=== PATIENT | female | born 1980 | race American Indian/Alaskan Native ===

== ENCOUNTER 2018-10-24 17:20 | Emergency (ER) | payer MEDICAID ==
[~2018-10-24] VITALS: Ht 160 cm; Wt 73.6 kg
[~2018-10-24 17:20] MED LIST: HYDR-4353 PO; MULT1TAB74 PO; ONDA4TAB6 PO
[2018-10-24 17:57] LABS: BASOPHILS # (AUTO) 0.1 X10'3 (0-0.2); BASOPHILS % (AUTO) 0.6 % (0-1); EOSINOPHILS % (AUTO) 0.6 % (0-6); HEMATOCRIT 27.5 % (35.0-45.0); HEMOGLOBIN 8.3 g/dl (12.0-16.0); LYMPHOCYTES # (AUTO) 2.6 X10'3 (1.1-4.8); MEAN CORPUSCULAR HEMOGLOBIN 19.8 PG (27.0-31.0); MEAN CORPUSCULAR HGB CONC 30.3 g/dL (33.0-36.5); MEAN CORPUSCULAR VOLUME 65.5 FL (78-98); MEAN PLATELET VOLUME 8.2 FL (7.4-10.4); MONOCYTES # (AUTO) 0.7 X10'3 (0-0.9); MONOCYTES % (AUTO) 8.6 % (2-12); NEUTROPHILS # (AUTO) 4.9 X10'3 (1.8-7.7); NEUTROPHILS % (AUTO) 59.2 % (42-75); PLATELET COUNT 441 X10'3 (140-440); RED CELL DISTRIBUTION WIDTH 18.5 % (11.5-14.5); WHITE BLOOD COUNT 8.2 X10'3 (4.5-11.0)
[2018-10-24 18:07] LABS: URINE HCG NEGATIVE (NEG)
[2018-10-24 18:13] LABS: CLARITY,URINE CLOUDY (Clear); COLOR,URINE YELLOW (Yellow); GLUCOSE, URINE NEGATIVE (Neg); KETONES,URINE NEGATIVE (Neg); LEUKOCYTE ESTERASE ,URINE NEGATIVE (Neg); NITRITES, URINE NEGATIVE (Neg); OCCULT BLOOD,URINE TRACE-INTACT (Neg); PH,URINE 5.5 (4.8-8.0); PROTEIN,URINE NEGATIVE (Neg)
[2018-10-24 18:14] LABS: ALANINE AMINOTRANSFERASE 30 U/L (12-78); ALBUMIN 3.5 G/DL (3.4-5.0); ALBUMIN/GLOBULIN RATIO 1.1 (1.1-1.5); ALKALINE PHOSPHATASE 109 IU/L (46-116); ANION GAP 7 (8-16); ASPARTATE AMINO TRANSFERASE 28 U/L (10-37); BILIRUBIN,TOTAL 0.2 MG/DL (0.1-1.0); BLOOD UREA NITROGEN 10 MG/DL (7-18); BUN/CREATININE RATIO 14.9 (6.6-38.0); CALCIUM 8.3 MG/DL (8.5-10.1); CHLORIDE 105 MMOL/L (99-107); CREATININE 0.67 MG/DL (0.40-0.90); GLUCOSE 78 MG/DL (70-104); LIPASE 70 U/L (73-393); POTASSIUM 3.7 MMOL/L (3.5-5.1); SODIUM 138 MMOL/L (135-145); TOTAL CARBON DIOXIDE 26.4 MMOL/L (24-32); TOTAL PROTEIN 6.6 G/DL (6.4-8.2); eGFR > 90 ML/MIN
[2018-10-24] MEDS ORDERED: ondansetron/PF 4mg/2ml inj IV ONE (18:15)
[2018-10-24] MEDS ORDERED: normal saline 1000ML IV soln IVB ONE (18:15)
[2018-10-24] MEDS ORDERED: sucralfate 1gm/10ml UD suspension PO STA (18:20)
[2018-10-24] MEDS: morphine 4 MG/ML inj SYRINge IV PRN ×2 (18:24→18:48)
[2018-10-24 18:25] LABS: UA COLLECTION TYPE CLN CATCH MIDSTREAM
[2018-10-24 18:29] LABS: BACTERIA,URINE NONE SEEN /HPF (Neg); CAL OXALATE CRYSTALS 2+ /HPF (NEGATIVE); MUCUS STRANDS NONE SEEN /LPF (Neg); RBC,URINE 0-2 /HPF (0-2); SQUAMOUS EPITHELIAL CELL,UR NONE SEEN /LPF (FEW); STARCH,URINE FEW /HPF (NEGATIVE); WBC,URINE NONE SEEN /HPF (0-4)
--- NOTE | 2018-10-24 18:45 | NUR ---
Pt pain decreased from 9/10 to 7/10 after 1st dose of Morphine. Additional dose of Morphine to be given.
[2018-10-24] MEDS ORDERED: SUCR1TAB34 PO (18:52)
--- NOTE | 2018-10-24 19:21 | NUR ---
pt given 8 oz of water for PO challenge. Pt denied nausea and no increase in pain.
[2018-10-24 19:22] VITALS: BP 120/73
[2018-10-24 20:35] LABS: PLATELET ESTIMATE INCREASED
[2018-10-24 20:36] LABS: ANISOCYTOSIS 2+; HYPOCHROMASIA 1+; MICROCYTOSIS 2+; SCHISTOCYTES FEW
== END 2018-10-24 19:25 | disposition home or self-care (01) ==
LOC: ER 17:21
DX: R10.9 Unspecified abdominal pain (principal); R11.2 Nausea with vomiting, unspecified; K21.9 Gastro-esophageal reflux disease without esophagitis; G89.29 Other chronic pain; Z88.0 Allergy status to penicillin; Z88.8 Allergy status to other drugs, medicaments and biological substances; Z88.2 Allergy status to sulfonamides; Z79.899 Other long term (current) drug therapy; Z87.442 Personal history of urinary calculi; Z90.710 Acquired absence of both cervix and uterus; Z98.890 Other specified postprocedural states; Z98.84 Bariatric surgery status; Z90.89 Acquired absence of other organs; Z87.01 Personal history of pneumonia (recurrent); Z86.2 Personal history of diseases of the blood and blood-forming organs and certain disorders involving the immune mechanism
CPT/HCPCS: 36415; 80053; 81001; 81025; 83690; 85025; 85610; 96374; 96375; 99283; J2270; J2405; J7030

== ENCOUNTER 2019-02-05 09:21 | Emergency (ER) | payer MEDICAID, OTHER ==
[~2019-02-05] VITALS: Ht 162.6 cm; Wt 67.6 kg
[~2019-02-05 09:21] MED LIST changes: +SUCR1TAB34 PO
[2019-02-05] MEDS ORDERED: normal saline 1000ML IV soln IVB ONE (09:45)
[2019-02-05] MEDS ORDERED: ondansetron/PF 4mg/2ml inj IV ONE (09:45)
--- NOTE | 2019-02-05 09:50 | NUR ---
PROVIDER EUGENE ANDERSON PT AND PT IS NOW A TRAUMA LEVEL 2.
--- NOTE | 2019-02-05 10:07 | NUR ---
PT TAKEN OUT TO CT VIA W/C BY TECH.
[2019-02-05 10:22] LABS: BASOPHILS % (AUTO) 0.6 % (0-1); EOSINOPHILS % (AUTO) 0.3 % (0-6); HEMATOCRIT 29.6 % (35.0-45.0); HEMOGLOBIN 9.5 g/dl (12.0-16.0); LYMPHOCYTES # (AUTO) 1.9 X10'3 (1.1-4.8); LYMPHOCYTES % (AUTO) 29.6 % (21-51); MEAN CORPUSCULAR HEMOGLOBIN 22.5 PG (27.0-31.0); MEAN CORPUSCULAR HGB CONC 32.2 g/dL (33.0-36.5); MEAN CORPUSCULAR VOLUME 69.8 FL (78-98); MONOCYTES # (AUTO) 0.6 X10'3 (0-0.9); MONOCYTES % (AUTO) 8.7 % (2-12); NEUTROPHILS # (AUTO) 3.9 X10'3 (1.8-7.7); NEUTROPHILS % (AUTO) 60.8 % (42-75); PLATELET COUNT 321 X10'3 (140-440); RED BLOOD COUNT 4.23 X10'6 (4.20-5.60); RED CELL DISTRIBUTION WIDTH 20.7 % (11.5-14.5); WHITE BLOOD COUNT 6.4 X10'3 (4.5-11.0)
--- NOTE | 2019-02-05 10:29 | NUR ---
PT BACK FROM CT VIA W/C BY TECH. VS STABLE
[2019-02-05] MEDS ORDERED: NO HOME MEDS (10:41)
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
[2019-02-05 10:42] LABS: ALANINE AMINOTRANSFERASE 56 U/L (12-78); ALBUMIN 3.6 G/DL (3.4-5.0); ALBUMIN/GLOBULIN RATIO 1.1 (1.1-1.5); ALKALINE PHOSPHATASE 198 IU/L (46-116); ANION GAP 9 (8-16); ASPARTATE AMINO TRANSFERASE 57 U/L (10-37); BILIRUBIN,TOTAL 0.2 MG/DL (0.1-1.0); BLOOD UREA NITROGEN 8 MG/DL (7-18); BUN/CREATININE RATIO 11.9 (6.6-38.0); CALCIUM 8.2 MG/DL (8.5-10.1); CHLORIDE 105 MMOL/L (99-107); CREATININE 0.67 MG/DL (0.40-0.90); GLUCOSE 82 MG/DL (70-104); POTASSIUM 3.1 MMOL/L (3.5-5.1); SODIUM 140 MMOL/L (135-145); eGFR > 90 ML/MIN
[2019-02-05] MEDS ORDERED: HYDROcodone/acetaminophen 5mg/325mg tablet PO ONE (10:45)
--- NOTE | 2019-02-05 10:53 | NUR ---
Trauma status cleared.
[2019-02-05] MEDS ORDERED: CYCL-1 PO (10:56)
[2019-02-05] MEDS ORDERED: ONDA4TAB6 PO (10:56)
[2019-02-05 11:09] VITALS: BP 134/78
--- NOTE | 2019-02-05 11:28 | NUR ---
mahamed nino [phone] obtained case # [id number]
[2019-02-05 11:52] LABS: ANISOCYTOSIS 3+; MICROCYTOSIS 2+; PLATELET ESTIMATE NORMAL
[2019-02-05 11:53] LABS: ELLIPTOCYTES 1+; SCHISTOCYTES FEW
== END 2019-02-05 11:36 | disposition home or self-care (01) ==
LOC: ER 09:21
DX: S06.0X0A Concussion without loss of consciousness, initial encounter (principal); S16.1XXA Strain of muscle, fascia and tendon at neck level, initial encounter; S00.83XA Contusion of other part of head, initial encounter; D64.9 Anemia, unspecified; K21.9 Gastro-esophageal reflux disease without esophagitis; G47.30 Sleep apnea, unspecified; G89.29 Other chronic pain; F10.99 Alcohol use, unspecified with unspecified alcohol-induced disorder; H53.8 Other visual disturbances; Z87.442 Personal history of urinary calculi; Z90.49 Acquired absence of other specified parts of digestive tract; Z98.890 Other specified postprocedural states; Z98.84 Bariatric surgery status; Z90.89 Acquired absence of other organs; Z88.0 Allergy status to penicillin; Z88.2 Allergy status to sulfonamides; Z88.8 Allergy status to other drugs, medicaments and biological substances; Z79.899 Other long term (current) drug therapy; Y08.89XA Assault by other specified means, initial encounter; Y93.89 Activity, other specified; Y92.89 Other specified places as the place of occurrence of the external cause; Y99.8 Other external cause status; Y90.9 Presence of alcohol in blood, level not specified
CPT/HCPCS: 36415; 70450; 70486; 71045; 72125; 80053; 85025; 85610; 93005; 96374; 99284; J2405; J7030

== ENCOUNTER 2019-03-08 20:46 | Emergency (ER) | payer OTHER ==
[~2019-03-08] VITALS: Ht 162.6 cm; Wt 70.3 kg
[~2019-03-08 20:46] MED LIST changes: +CYCL-1 PO; -HYDR-4353 PO; -MULT1TAB74 PO; +NO HOME MEDS; -SUCR1TAB34 PO
[2019-03-08 21:06] VITALS: BP 139/79
[2019-03-08] MEDS ORDERED: normal saline 1000ML IV soln IVB ONE (22:15)
[2019-03-08] MEDS ORDERED: ondansetron/PF 4mg/2ml inj IV ONE (22:15)
[2019-03-08] MEDS ORDERED: ONDA4TAB6 PO (23:35)
[2019-03-08] MEDS ORDERED: CLIN150C2 PO (23:35)
[2019-03-08 23:42] LABS: ALANINE AMINOTRANSFERASE 29 U/L (12-78); ALBUMIN 3.2 G/DL (3.4-5.0); ALBUMIN/GLOBULIN RATIO 1.2 (1.1-1.5); ALKALINE PHOSPHATASE 113 IU/L (46-116); ANION GAP 4 (8-16); ASPARTATE AMINO TRANSFERASE 27 U/L (10-37); BILIRUBIN,TOTAL 0.2 MG/DL (0.1-1.0); BLOOD UREA NITROGEN 6 MG/DL (7-18); BUN/CREATININE RATIO 8.5 (6.6-38.0); CALCIUM 7.5 MG/DL (8.5-10.1); CHLORIDE 108 MMOL/L (99-107); CREATININE 0.71 MG/DL (0.40-0.90); GLUCOSE 81 MG/DL (70-104); LIPASE 54 U/L (73-393); POTASSIUM 3.9 MMOL/L (3.5-5.1); SODIUM 140 MMOL/L (135-145); TOTAL CARBON DIOXIDE 27.8 MMOL/L (24-32); TOTAL PROTEIN 5.8 G/DL (6.4-8.2); eGFR > 90 ML/MIN
== END 2019-03-09 01:07 | disposition home or self-care (01) ==
LOC: ER 20:47
DX: L03.011 Cellulitis of right finger (principal); K29.00 Acute gastritis without bleeding; G47.30 Sleep apnea, unspecified; K21.9 Gastro-esophageal reflux disease without esophagitis; G89.29 Other chronic pain; Z90.49 Acquired absence of other specified parts of digestive tract; Z98.0 Intestinal bypass and anastomosis status; Z98.890 Other specified postprocedural states; Z88.0 Allergy status to penicillin; Z88.2 Allergy status to sulfonamides; Z88.1 Allergy status to other antibiotic agents; Z88.8 Allergy status to other drugs, medicaments and biological substances; Z79.899 Other long term (current) drug therapy
CPT/HCPCS: 36415; 80053; 83690; 96361; 96374; 99283; J2405; J7030

== ENCOUNTER 2019-07-27 05:07 | Emergency (ER) | payer OTHER ==
[~2019-07-27] VITALS: Ht 162.6 cm; Wt 65.5 kg
[2019-07-27 05:09] VITALS: BP 124/99
== END 2019-07-27 06:53 | disposition home or self-care (01) ==
LOC: ER 05:08
DX: L23.7 Allergic contact dermatitis due to plants, except food (principal); N92.0 Excessive and frequent menstruation with regular cycle; E16.2 Hypoglycemia, unspecified; G47.30 Sleep apnea, unspecified; K21.9 Gastro-esophageal reflux disease without esophagitis; G89.29 Other chronic pain; Z90.710 Acquired absence of both cervix and uterus; Z98.0 Intestinal bypass and anastomosis status; Z98.890 Other specified postprocedural states; Z88.0 Allergy status to penicillin; Z88.8 Allergy status to other drugs, medicaments and biological substances; Z79.899 Other long term (current) drug therapy
CPT/HCPCS: 99282

== ENCOUNTER 2019-08-09 22:02 | Emergency (ER) | payer OTHER ==
[~2019-08-09] VITALS: Ht 162.6 cm; Wt 62.7 kg
[2019-08-09] MEDS ORDERED: normal saline 1000ML IV soln IVB ONE ×2 (22:25→22:55)
[2019-08-09 22:29] LABS: CLARITY,URINE CLEAR (Clear); COLOR,URINE YELLOW (Yellow); GLUCOSE, URINE NEGATIVE (Neg); KETONES,URINE NEGATIVE (Neg); LEUKOCYTE ESTERASE ,URINE NEGATIVE (Neg); NITRITES, URINE NEGATIVE (Neg); OCCULT BLOOD,URINE NEGATIVE (Neg); PH,URINE 5.5 (4.8-8.0); PROTEIN,URINE NEGATIVE (Neg); UROBILINOGEN,URINE 0.2 E.U/dL (0.2-1.0)
[2019-08-09 22:31] LABS: URINE HCG NEGATIVE (NEG)
[2019-08-09 22:36] LABS: UA COLLECTION TYPE CLN CATCH MIDSTREAM
[2019-08-09 22:38] LABS: BASOPHILS % (AUTO) 0.5 % (0-1); EOSINOPHILS % (AUTO) 0.4 % (0-6); HEMOGLOBIN 11.7 g/dl (12.0-16.0); LYMPHOCYTES # (AUTO) 2.3 X10'3 (1.1-4.8); LYMPHOCYTES % (AUTO) 27.4 % (21-51); MEAN CORPUSCULAR HEMOGLOBIN 26.7 PG (27.0-31.0); MEAN CORPUSCULAR HGB CONC 32.4 g/dL (33.0-36.5); MEAN CORPUSCULAR VOLUME 82.5 FL (78-98); MEAN PLATELET VOLUME 7.9 FL (7.4-10.4); MONOCYTES # (AUTO) 0.6 X10'3 (0-0.9); MONOCYTES % (AUTO) 6.9 % (2-12); NEUTROPHILS # (AUTO) 5.5 X10'3 (1.8-7.7); NEUTROPHILS % (AUTO) 64.8 % (42-75); PLATELET COUNT 351 X10'3 (140-440); RED BLOOD COUNT 4.36 X10'6 (4.20-5.60); RED CELL DISTRIBUTION WIDTH 14.9 % (11.5-14.5); WHITE BLOOD COUNT 8.5 X10'3 (4.5-11.0)
[2019-08-09 22:48] LABS: ALANINE AMINOTRANSFERASE 28 U/L (12-78); ALBUMIN 3.4 G/DL (3.4-5.0); ALBUMIN/GLOBULIN RATIO 1.2 (1.1-1.5); ANION GAP 2 (8-16); ASPARTATE AMINO TRANSFERASE 21 U/L (10-37); BILIRUBIN,TOTAL 0.2 MG/DL (0.1-1.0); BLOOD UREA NITROGEN 9 MG/DL (7-18); BUN/CREATININE RATIO 10.8 (6.6-38.0); CALCIUM 8.7 MG/DL (8.5-10.1); CHLORIDE 105 MMOL/L (99-107); CREATININE 0.83 MG/DL (0.40-0.90); GLUCOSE 72 MG/DL (70-104); POTASSIUM 4.1 MMOL/L (3.5-5.1); SODIUM 138 MMOL/L (135-145); TOTAL CARBON DIOXIDE 30.9 MMOL/L (24-32); TOTAL PROTEIN 6.2 G/DL (6.4-8.2); eGFR 76 ML/MIN
[2019-08-09 22:49] LABS: ALKALINE PHOSPHATASE 121 IU/L (46-116); LIPASE 84 U/L (73-393)
[2019-08-09] MEDS ORDERED: magnesium citrate 296ml oral solution PO ONE (23:10)
[2019-08-09 23:29] VITALS: BP 134/87
== END 2019-08-10 00:12 | disposition home or self-care (01) ==
LOC: ER 22:03
DX: R10.31 Right lower quadrant pain (principal); R11.2 Nausea with vomiting, unspecified; R10.32 Left lower quadrant pain; R50.9 Fever, unspecified; K59.00 Constipation, unspecified; K21.9 Gastro-esophageal reflux disease without esophagitis; G89.29 Other chronic pain; Z87.01 Personal history of pneumonia (recurrent); Z86.2 Personal history of diseases of the blood and blood-forming organs and certain disorders involving the immune mechanism; Z87.442 Personal history of urinary calculi; Z90.49 Acquired absence of other specified parts of digestive tract; Z98.890 Other specified postprocedural states; Z90.89 Acquired absence of other organs; Z88.0 Allergy status to penicillin; Z88.8 Allergy status to other drugs, medicaments and biological substances; Z79.899 Other long term (current) drug therapy
CPT/HCPCS: 36415; 74176; 80053; 81003; 81025; 83690; 85025; 96360; 96361; 99284; J7030

== ENCOUNTER 2019-10-11 21:26 | Emergency (ER) | payer MEDICAID ==
[~2019-10-11] VITALS: Ht 162.6 cm; Wt 65.0 kg
[2019-10-11 21:47] LABS: URINE HCG NEGATIVE (NEG)
[2019-10-11] MEDS ORDERED: normal saline 1000ml 1,000 ML IV ONE (21:50)
[2019-10-11] MEDS ORDERED: ondansetron/PF 4mg/2ml inj IV ONE (21:55)
[2019-10-11 22:10] LABS: ALANINE AMINOTRANSFERASE 61 U/L (12-78); ALBUMIN 3.2 G/DL (3.4-5.0); ALBUMIN/GLOBULIN RATIO 1.1 (1.1-1.5); ALKALINE PHOSPHATASE 167 IU/L (46-116); ANION GAP 7 (8-16); ASPARTATE AMINO TRANSFERASE 92 U/L (10-37); BILIRUBIN,TOTAL 0.2 MG/DL (0.1-1.0); BLOOD UREA NITROGEN 8 MG/DL (7-18); CALCIUM 7.7 MG/DL (8.5-10.1); CHLORIDE 107 MMOL/L (99-107); GLUCOSE 127 MG/DL (70-104); LIPASE 125 U/L (73-393); POTASSIUM 3.6 MMOL/L (3.5-5.1); SODIUM 139 MMOL/L (135-145); TOTAL CARBON DIOXIDE 24.9 MMOL/L (24-32); eGFR 79 ML/MIN
[2019-10-11 22:46] LABS: BASOPHILS % (AUTO) 0.6 % (0-1); EOSINOPHILS % (AUTO) 0.5 % (0-6); HEMATOCRIT 34.4 % (35.0-45.0); HEMOGLOBIN 11.1 g/dl (12.0-16.0); LYMPHOCYTES # (AUTO) 1.8 X10'3 (1.1-4.8); MEAN CORPUSCULAR HEMOGLOBIN 25.6 PG (27.0-31.0); MEAN CORPUSCULAR HGB CONC 32.2 g/dL (33.0-36.5); MEAN CORPUSCULAR VOLUME 79.3 FL (78-98); MEAN PLATELET VOLUME 8.8 FL (7.4-10.4); MONOCYTES # (AUTO) 0.6 X10'3 (0-0.9); MONOCYTES % (AUTO) 8.5 % (2-12); NEUTROPHILS # (AUTO) 4.1 X10'3 (1.8-7.7); NEUTROPHILS % (AUTO) 62.4 % (42-75); PLATELET COUNT 317 X10'3 (140-440); RED BLOOD COUNT 4.34 X10'6 (4.20-5.60); RED CELL DISTRIBUTION WIDTH 14.3 % (11.5-14.5); WHITE BLOOD COUNT 6.6 X10'3 (4.5-11.0)
[2019-10-11 22:57] LABS: CLARITY,URINE SLIGHTLY CLOUDY (Clear); COLOR,URINE YELLOW (Yellow); GLUCOSE, URINE NEGATIVE (Neg); KETONES,URINE NEGATIVE (Neg); LEUKOCYTE ESTERASE ,URINE NEGATIVE (Neg); NITRITES, URINE NEGATIVE (Neg); OCCULT BLOOD,URINE NEGATIVE (Neg); PROTEIN,URINE NEGATIVE (Neg); UROBILINOGEN,URINE 0.2 E.U/dL (0.2-1.0)
[2019-10-11 23:01] LABS: UA COLLECTION TYPE CLN CATCH MIDSTREAM
[2019-10-11 23:10] LABS: BACTERIA,URINE FEW /HPF (Neg); MUCUS STRANDS FEW /LPF (Neg); RBC,URINE NONE SEEN /HPF (0-2); SQUAMOUS EPITHELIAL CELL,UR MANY /LPF (FEW); WBC,URINE 0-4 /HPF (0-4)
--- NOTE | 2019-10-11 23:20 | NUR ---
relieving RN for break, pt is resting quietly on gurney
[2019-10-11] MEDS ORDERED: famotidine/PF 10 mg/ml inj IV ONE (23:45)
[2019-10-11] MEDS ORDERED: FAMO40TA73 PO (23:48)
[2019-10-12 00:05] VITALS: BP 119/76
== END 2019-10-12 00:09 | disposition home or self-care (01) ==
LOC: ER 21:26
DX: R10.84 Generalized abdominal pain (principal); R11.2 Nausea with vomiting, unspecified; G47.30 Sleep apnea, unspecified; K21.9 Gastro-esophageal reflux disease without esophagitis; G89.29 Other chronic pain; Z90.49 Acquired absence of other specified parts of digestive tract; Z95.1 Presence of aortocoronary bypass graft; Z98.890 Other specified postprocedural states; Z90.89 Acquired absence of other organs; Z88.0 Allergy status to penicillin; Z88.8 Allergy status to other drugs, medicaments and biological substances; Z79.899 Other long term (current) drug therapy
CPT/HCPCS: 36415; 80053; 81001; 81025; 83690; 85025; 96361; 96374; 96375; 99284; J2405; J3490; J7030

== ENCOUNTER 2019-12-18 20:35 | Emergency (ER) | payer MEDICAID ==
[~2019-12-18] VITALS: Ht 162.6 cm; Wt 66.4 kg
[~2019-12-18 20:35] MED LIST changes: +FAMO40TA73 PO
[2019-12-18 20:37] VITALS: BP 126/72
== END 2019-12-18 21:44 | disposition left against medical advice (07) ==
LOC: ER 20:36
DX: O26.91 Pregnancy related conditions, unspecified, first trimester (principal); Z3A.08 8 weeks gestation of pregnancy; Z53.21 Procedure and treatment not carried out due to patient leaving prior to being seen by health care provider

== ENCOUNTER 2020-03-18 10:58 | Outpatient (CLI) | payer MEDICAID ==
[2020-03-18 11:46] LABS: BASOPHILS % (AUTO) 0.4 % (0-1); EOSINOPHILS % (AUTO) 0.1 % (0-6); HEMATOCRIT 32.3 % (35.0-45.0); HEMOGLOBIN 10.4 g/dl (12.0-16.0); LYMPHOCYTES # (AUTO) 1.8 X10'3 (1.1-4.8); LYMPHOCYTES % (AUTO) 17.7 % (21-51); MEAN CORPUSCULAR HEMOGLOBIN 23.4 PG (27.0-31.0); MEAN CORPUSCULAR HGB CONC 32.1 g/dL (33.0-36.5); MEAN CORPUSCULAR VOLUME 72.8 FL (78-98); MEAN PLATELET VOLUME 7.8 FL (7.4-10.4); MONOCYTES # (AUTO) 0.7 X10'3 (0-0.9); MONOCYTES % (AUTO) 6.9 % (2-12); NEUTROPHILS # (AUTO) 7.5 X10'3 (1.8-7.7); NEUTROPHILS % (AUTO) 74.9 % (42-75); PLATELET COUNT 381 X10'3 (140-440); RED BLOOD COUNT 4.44 X10'6 (4.20-5.60); RED CELL DISTRIBUTION WIDTH 20.6 % (11.5-14.5); WHITE BLOOD COUNT 10.1 X10'3 (4.5-11.0)
[2020-03-18 17:57] LABS: ELLIPTOCYTES 1+; PLATELET ESTIMATE NORMAL; POLYCHROMASIA 1+
[2020-03-18 17:58] LABS: ANISOCYTOSIS 3+; HYPOCHROMASIA 1+; MICROCYTOSIS 1+
== END 2020-03-18 23:59 | disposition home or self-care (01) ==
LOC: LAB 10:58
DX: D64.9 Anemia, unspecified (principal); Z3A.20 20 weeks gestation of pregnancy
CPT/HCPCS: 36415; 85008; 85025

== ENCOUNTER 2020-03-24 23:29 | Emergency (ER) | payer MEDICAID ==
[~2020-03-24] VITALS: Ht 162.6 cm; Wt 67.2 kg
[2020-03-25 00:16] LABS: HEMATOCRIT 34.2 % (35.0-45.0); WHITE BLOOD COUNT 7.5 X10'3 (4.5-11.0)
[2020-03-25 00:18] LABS: BASOPHILS % (AUTO) 0.2 % (0-1); EOSINOPHILS % (AUTO) 0.2 % (0-6); LYMPHOCYTES # (AUTO) 2.5 X10'3 (1.1-4.8); LYMPHOCYTES % (AUTO) 33.4 % (21-51); MEAN CORPUSCULAR HEMOGLOBIN 24.3 PG (27.0-31.0); MEAN CORPUSCULAR HGB CONC 32.2 g/dL (33.0-36.5); MEAN CORPUSCULAR VOLUME 75.4 FL (78-98); MEAN PLATELET VOLUME 8.1 FL (7.4-10.4); MONOCYTES # (AUTO) 0.5 X10'3 (0-0.9); NEUTROPHILS # (AUTO) 4.4 X10'3 (1.8-7.7); NEUTROPHILS % (AUTO) 59.2 % (42-75); PLATELET COUNT 296 X10'3 (140-440); RED BLOOD COUNT 4.54 X10'6 (4.20-5.60); RED CELL DISTRIBUTION WIDTH 25.6 % (11.5-14.5)
[2020-03-25 00:33] LABS: ALANINE AMINOTRANSFERASE 18 U/L (12-78); ALBUMIN 2.7 G/DL (3.4-5.0); ALBUMIN/GLOBULIN RATIO 0.7 (1.1-1.5); ALKALINE PHOSPHATASE 113 IU/L (46-116); ANION GAP 11 (8-16); ASPARTATE AMINO TRANSFERASE 20 U/L (10-37); BILIRUBIN,TOTAL 0.2 MG/DL (0.1-1.0); BLOOD UREA NITROGEN 5 MG/DL (7-18); BUN/CREATININE RATIO 8.8 (6.6-38.0); CALCIUM 7.9 MG/DL (8.5-10.1); CHLORIDE 107 MMOL/L (99-107); CREATININE 0.57 MG/DL (0.40-0.90); GLUCOSE 66 MG/DL (70-104); POTASSIUM 3.1 MMOL/L (3.5-5.1); SODIUM 141 MMOL/L (135-145); TOTAL CARBON DIOXIDE 22.8 MMOL/L (24-32); TOTAL PROTEIN 6.4 G/DL (6.4-8.2); eGFR > 90 ML/MIN
[2020-03-25 00:40] LABS: ANISOCYTOSIS 3+; ELLIPTOCYTES 1+; MICROCYTOSIS 1+; PLATELET ESTIMATE NORMAL
[2020-03-25] MEDS ORDERED: potassium Cl 20 mEq SR tablet PO STA (00:42)
[2020-03-25] MEDS ORDERED: ondansetron 4mg rapidly disintigrating tab PO ONE (00:55)
--- NOTE | 2020-03-25 01:02 | NUR ---
scanner not working at bedside. correct name, , med and dose verified. discussed use of zofran with with md aguilera prior to admin. per md, med is safe for .
--- NOTE | 2020-03-25 01:22 | NUR ---
VASCULAR AT BEDSIDE
[2020-03-25 02:17] VITALS: BP 163/83
== END 2020-03-25 02:20 | disposition home or self-care (01) ==
LOC: ER 23:30
DX: O26.92 Pregnancy related conditions, unspecified, second trimester (principal); I82.621 Acute embolism and thrombosis of deep veins of right upper extremity; M79.602 Pain in left arm; R51.9 Headache, unspecified; R11.2 Nausea with vomiting, unspecified; E87.6 Hypokalemia; G89.29 Other chronic pain; K21.9 Gastro-esophageal reflux disease without esophagitis; Z3A.00 Weeks of gestation of pregnancy not specified; Z87.01 Personal history of pneumonia (recurrent); Z86.2 Personal history of diseases of the blood and blood-forming organs and certain disorders involving the immune mechanism; Z87.442 Personal history of urinary calculi; Z90.49 Acquired absence of other specified parts of digestive tract; Z98.890 Other specified postprocedural states; Z90.89 Acquired absence of other organs; Z88.0 Allergy status to penicillin; Z88.8 Allergy status to other drugs, medicaments and biological substances; Z88.1 Allergy status to other antibiotic agents; Z79.899 Other long term (current) drug therapy
CPT/HCPCS: 36415; 80053; 83605; 84145; 85008; 85025; 93971; 99284

== ENCOUNTER 2020-12-19 21:01 | Emergency (ER) | payer MEDICAID ==
[~2020-12-19] VITALS: Ht 152.4 cm; Wt 68.1 kg
[2020-12-19] MEDS ORDERED: DOXY-1 PO (22:31)
[2020-12-19 22:50] VITALS: BP 118/73
== END 2020-12-19 22:52 | disposition home or self-care (01) ==
LOC: ER 21:02
DX: L03.211 Cellulitis of face (principal); K21.9 Gastro-esophageal reflux disease without esophagitis; D64.9 Anemia, unspecified; Z87.442 Personal history of urinary calculi; Z88.0 Allergy status to penicillin; Z88.8 Allergy status to other drugs, medicaments and biological substances
CPT/HCPCS: 99283

== ENCOUNTER 2021-01-26 22:42 | Emergency (ER) | payer MEDICAID ==
[~2021-01-26] VITALS: Ht 162.6 cm; Wt 69.1 kg
[2021-01-26 22:50] VITALS: BP 130/79
--- NOTE | 2021-01-27 00:14 | NUR ---
NOT IN LOBBY
--- NOTE | 2021-01-27 01:00 | NUR ---
NOT IN LOBBY
--- NOTE | 2021-01-27 01:30 | NUR ---
NOT IN LOBBY
[2021-01-27] MEDS ORDERED: DOXY100T67 PO (17:54)
[2021-01-27] MEDS ORDERED: ONDA8TAB13 PO (18:14)
== END 2021-01-27 02:38 | disposition left against medical advice (07) ==
LOC: ER 22:43
DX: Z53.21 Procedure and treatment not carried out due to patient leaving prior to being seen by health care provider (principal)

== ENCOUNTER 2021-01-27 17:30 | Emergency (ER) | payer MEDICAID ==
[~2021-01-27] VITALS: Ht 162.6 cm; Wt 69.1 kg
[2021-01-27 17:41] VITALS: BP 137/81
[2021-01-27] MEDS ORDERED: DOXY100T67 PO (17:54)
[2021-01-27] MEDS ORDERED: bacitracin 15gm ointment TP ONE (18:05)
[2021-01-27] MEDS ORDERED: ONDA8TAB13 PO (18:14)
== END 2021-01-27 18:51 | disposition home or self-care (01) ==
LOC: ER 17:31
DX: S80.811A Abrasion, right lower leg, initial encounter (principal); K21.9 Gastro-esophageal reflux disease without esophagitis; G89.29 Other chronic pain; Z87.01 Personal history of pneumonia (recurrent); Z86.2 Personal history of diseases of the blood and blood-forming organs and certain disorders involving the immune mechanism; Z87.442 Personal history of urinary calculi; Z90.49 Acquired absence of other specified parts of digestive tract; Z98.890 Other specified postprocedural states; Z90.89 Acquired absence of other organs; Z88.0 Allergy status to penicillin; Z88.1 Allergy status to other antibiotic agents; Z88.8 Allergy status to other drugs, medicaments and biological substances; Z79.2 Long term (current) use of antibiotics; Z79.899 Other long term (current) drug therapy; W55.01XA Bitten by cat, initial encounter; Y93.89 Activity, other specified; Y92.89 Other specified places as the place of occurrence of the external cause; Y99.8 Other external cause status
CPT/HCPCS: 99283

== ENCOUNTER 2022-12-26 01:54 | Emergency (ER) | payer MEDICAID ==
[~2022-12-26] VITALS: Ht 160 cm; Wt 70.0 kg
[~2022-12-26 01:54] MED LIST changes: +ONDA8TAB13 PO
[2022-12-26 01:58] VITALS: TEMP 98
[2022-12-26] MEDS ORDERED: HYDROcodone/acetaminophen 10/325mg tab PO ONE (04:25)
[2022-12-26] MEDS ORDERED: ibuprofen tablet 400 MG TABLET PO ONE (04:25)
--- NOTE | 2022-12-26 04:34 | NUR ---
CALL TO [facility] TO REPORT CASE. PER DISPATCHER CASE REPORTED EARLIER THIS SHIFT AROUND 01:00 CASE # [id number].
[2022-12-26 05:24] VITALS: BP 105/67; PULSE 97; RESP 18; O2SAT 97
[2022-12-26] MEDS ORDERED: IBUP-1984 PO (05:40)
[2022-12-26] MEDS ORDERED: ACET-2615 PO (05:40)
[2022-12-26] MEDS ORDERED: METO5TAB85 PO (05:40)
== END 2022-12-26 06:06 | disposition home or self-care (01) ==
LOC: ER 01:54
DX: S00.12XA Contusion of left eyelid and periocular area, initial encounter (principal); S40.022A Contusion of left upper arm, initial encounter; S40.021A Contusion of right upper arm, initial encounter; S09.90XA Unspecified injury of head, initial encounter; F41.9 Anxiety disorder, unspecified; Z87.440 Personal history of urinary (tract) infections; Z98.84 Bariatric surgery status; Y04.0XXA Assault by unarmed brawl or fight, initial encounter; Y93.89 Activity, other specified; Y92.89 Other specified places as the place of occurrence of the external cause; Y99.8 Other external cause status
CPT/HCPCS: 70450; 70486; 71045; 73120; 99284

== ENCOUNTER 2023-05-11 17:34 | Emergency (ER) | payer MEDICAID ==
[~2023-05-11] VITALS: Ht 160 cm; Wt 72.8 kg
[~2023-05-11 17:34] MED LIST changes: +METO5TAB85 PO
[2023-05-11 18:10] VITALS: BP 133/103; PULSE 105; RESP 18; TEMP 98.4; O2SAT 99
[2023-05-11 18:36] LABS: BILIRUBIN,URINE NEGATIVE (Neg); CLARITY,URINE TURBID (Clear); COLOR,URINE YELLOW (Yellow); GLUCOSE, URINE NEGATIVE (Neg); KETONES,URINE NEGATIVE (Neg); LEUKOCYTE ESTERASE ,URINE NEGATIVE (Neg); NITRITES, URINE NEGATIVE (Neg); OCCULT BLOOD,URINE NEGATIVE (Neg); PROTEIN,URINE NEGATIVE (Neg); UROBILINOGEN,URINE 0.2 E.U/dL (0.2-1.0)
[2023-05-11 18:48] LABS: UA COLLECTION TYPE CLN CATCH MIDSTREAM
[2023-05-11 18:50] LABS: BACTERIA,URINE FEW /HPF (Neg); MUCUS STRANDS NONE SEEN /LPF (Neg); RBC,URINE 0-2 /HPF (0-2); SQUAMOUS EPITHELIAL CELL,UR NONE SEEN /LPF (FEW); WBC,URINE 0-4 /HPF (0-4)
[2023-05-11 18:51] LABS: AMORPHOUS URATES 4+
[2023-05-11 18:55] LABS: BASOPHILS # (AUTO) 0.1 X10'3 (0-0.2); BASOPHILS % (AUTO) 0.6 % (0-1); EOSINOPHILS % (AUTO) 0.4 % (0-6); HEMATOCRIT 35.2 % (35.0-45.0); HEMOGLOBIN 10.9 g/dl (12.0-16.0); LYMPHOCYTES # (AUTO) 3.6 X10'3 (1.1-4.8); LYMPHOCYTES % (AUTO) 32.9 % (21-51); MEAN CORPUSCULAR HEMOGLOBIN 21.1 PG (27.0-31.0); MEAN CORPUSCULAR VOLUME 68.1 FL (78-98); MEAN PLATELET VOLUME 7.9 FL (7.4-10.4); MONOCYTES # (AUTO) 0.9 X10'3 (0-0.9); MONOCYTES % (AUTO) 8.1 % (2-12); NEUTROPHILS # (AUTO) 6.3 X10'3 (1.8-7.7); PLATELET COUNT 404 X10'3 (140-440); RED BLOOD COUNT 5.17 X10'6 (4.20-5.60); RED CELL DISTRIBUTION WIDTH 17.3 % (11.5-14.5); WHITE BLOOD COUNT 10.8 X10'3 (4.5-11.0)
[2023-05-11 19:01] LABS: URINE AMPHETAMINE SCREEN NEGATIVE (Neg); URINE BARBITUATE SCREEN NEGATIVE (Neg); URINE BENZODIAZEPINES SCREEN NEGATIVE (Neg); URINE CANNABINOID SCREEN NEGATIVE (Neg); URINE COCAINE SCREEN NEGATIVE (Neg); URINE METHADONE SCREEN NEGATIVE (Neg); URINE OPIATE SCREEN NEGATIVE (Neg); URINE PHENCYCLIDINE SCREEN NEGATIVE (Neg)
[2023-05-11 19:10] LABS: APTT 24 SECONDS (22-32); INR 0.9 INR; PROTHROMBIN TIME 10.1 SECONDS (9.0-12.0)
[2023-05-11 19:18] LABS: ALANINE AMINOTRANSFERASE 39 U/L (12-78); ALBUMIN 3.5 G/DL (3.4-5.0); ALBUMIN/GLOBULIN RATIO 0.9 (1.1-1.5); ALKALINE PHOSPHATASE 157 IU/L (46-116); ANION GAP 10 (8-16); ASPARTATE AMINO TRANSFERASE 66 U/L (10-37); BILIRUBIN,TOTAL 0.2 MG/DL (0.1-1.0); BLOOD UREA NITROGEN 10 MG/DL (7-18); BUN/CREATININE RATIO 16.1 (10.0-20.0); CALCIUM 8.3 MG/DL (8.5-10.1); CHLORIDE 104 MMOL/L (99-107); CREATININE 0.62 MG/DL (0.40-0.90); GLUCOSE 82 MG/DL (70-104); LIPASE 34 U/L (16-77); SODIUM 138 MMOL/L (135-145); TOTAL CARBON DIOXIDE 24.3 MMOL/L (24-32); TOTAL PROTEIN 7.5 G/DL (6.4-8.2); eCRCL 96 ML/MIN; eGFR > 90 ML/MIN
[2023-05-11 19:22] LABS: POTASSIUM 4.6 MMOL/L (3.5-5.1)
[2023-05-11 19:38] LABS: HCG SERUM QL NEGATIVE
[2023-05-11 20:47] LABS: ANISOCYTOSIS 1+; ELLIPTOCYTES 1+; HYPOCHROMASIA 1+; LARGE PLATELETS FEW; MICROCYTOSIS 2+; PLATELET ESTIMATE NORMAL
== END 2023-05-11 18:00 | disposition left against medical advice (07) ==
LOC: ER 17:35
DX: R50.9 Fever, unspecified (principal); Z53.21 Procedure and treatment not carried out due to patient leaving prior to being seen by health care provider; T81.41XA Infection following a procedure, superficial incisional surgical site, initial encounter; R79.1 Abnormal coagulation profile
CPT/HCPCS: 36415; 74176; 80053; 80305; 81001; 83605; 83690; 84145; 84703; 85008; 85025; 85610; 85730; 99281

== ENCOUNTER 2023-07-19 22:10 | Emergency (ER) | payer MEDICAID ==
[~2023-07-19] VITALS: Ht 160 cm; Wt 74.1 kg
[2023-07-19 22:30] VITALS: TEMP 97
[2023-07-19 22:44] VITALS: RESP 16
[2023-07-19 23:30] VITALS: BP 120/80; PULSE 102; O2SAT 96
[2023-07-19 23:45] LABS: BASOPHILS # (AUTO) 0.1 X10'3 (0-0.2); BASOPHILS % (AUTO) 0.7 % (0-1); EOSINOPHILS # (AUTO) 0.1 X10'3 (0-0.9); EOSINOPHILS % (AUTO) 1.4 % (0-6); HEMOGLOBIN 8.6 g/dl (12.0-16.0); LYMPHOCYTES # (AUTO) 2.3 X10'3 (1.1-4.8); LYMPHOCYTES % (AUTO) 26.5 % (21-51); MEAN CORPUSCULAR HEMOGLOBIN 20.1 PG (27.0-31.0); MEAN CORPUSCULAR HGB CONC 30.6 g/dL (33.0-36.5); MEAN CORPUSCULAR VOLUME 65.8 FL (78-98); MEAN PLATELET VOLUME 8.8 FL (7.4-10.4); MONOCYTES # (AUTO) 0.7 X10'3 (0-0.9); NEUTROPHILS # (AUTO) 5.5 X10'3 (1.8-7.7); NEUTROPHILS % (AUTO) 63.4 % (42-75); PLATELET COUNT 411 X10'3 (140-440); RED BLOOD COUNT 4.27 X10'6 (4.20-5.60); RED CELL DISTRIBUTION WIDTH 20.3 % (11.5-14.5); WHITE BLOOD COUNT 8.7 X10'3 (4.5-11.0)
[2023-07-19 23:53] LABS: ALANINE AMINOTRANSFERASE 50 U/L (12-78); ALBUMIN 3.2 G/DL (3.4-5.0); ALBUMIN/GLOBULIN RATIO 0.9 (1.1-1.5); ALKALINE PHOSPHATASE 306 IU/L (46-116); ANION GAP 4 (8-16); ASPARTATE AMINO TRANSFERASE 66 U/L (10-37); BILIRUBIN,TOTAL 0.5 MG/DL (0.1-1.0); BLOOD UREA NITROGEN 11 MG/DL (7-18); BUN/CREATININE RATIO 16.2 (10.0-20.0); CALCIUM 8.1 MG/DL (8.5-10.1); CHLORIDE 105 MMOL/L (99-107); CREATININE 0.68 MG/DL (0.40-0.90); GLUCOSE 77 MG/DL (70-104); POTASSIUM 3.9 MMOL/L (3.5-5.1); SODIUM 139 MMOL/L (135-145); TOTAL CARBON DIOXIDE 29.7 MMOL/L (24-32); TOTAL PROTEIN 6.7 G/DL (6.4-8.2); eCRCL 87 ML/MIN; eGFR > 90 ML/MIN
[2023-07-20] LABS: LIPASE 17 U/L (16-77); PRO BRAIN NATRIURETIC PEPTIDE 143 PG/ML (0-125)
[2023-07-20 00:08] LABS: ANISOCYTOSIS 3+; PLATELET ESTIMATE NORMAL; TOTAL CELLS COUNTED 100
[2023-07-20 00:09] LABS: HYPOCHROMASIA 1+; MICROCYTOSIS 2+
[2023-07-20 00:10] LABS: ELLIPTOCYTES 1+; POLYCHROMASIA FEW
[2023-07-20 00:13] LABS: TEAR DROP CELLS FEW
[2023-07-20] MEDS: normal saline 1000ML IV soln IVB ONE (00:31)
[2023-07-20] MEDS: morphine 4 MG/ML inj SYRINge IV ONE (00:32)
[2023-07-20] MEDS: ondansetron/PF 4mg/2ml inj IV ONE (00:32)
== END 2023-07-20 00:41 | disposition home or self-care (01) ==
LOC: ER 22:10
DX: G89.18 Other acute postprocedural pain (principal); R10.84 Generalized abdominal pain; K21.9 Gastro-esophageal reflux disease without esophagitis; Z91.041 Radiographic dye allergy status; Z88.1 Allergy status to other antibiotic agents; Z88.0 Allergy status to penicillin; Z88.8 Allergy status to other drugs, medicaments and biological substances; Z90.49 Acquired absence of other specified parts of digestive tract
CPT/HCPCS: 36415; 80053; 83605; 83690; 83880; 85007; 85025; 87040; 99285

== ENCOUNTER → 2023-10-10 | Emergency (ER) | payer MEDICAID | END | disposition left against medical advice (07) | LOC: ER 14:08 | DX: R79.9 Abnormal finding of blood chemistry, unspecified (principal); Z53.21 Procedure and treatment not carried out due to patient leaving prior to being seen by health care provider; Z88.0 Allergy status to penicillin; Z88.8 Allergy status to other drugs, medicaments and biological substances; Z88.1 Allergy status to other antibiotic agents; Z91.041 Radiographic dye allergy status ==

== ENCOUNTER 2023-10-20 18:04 | Emergency (ER) | payer MEDICAID ==
[~2023-10-20] VITALS: Ht 160 cm; Wt 71.8 kg
[2023-10-20 18:34] VITALS: BP 112/75; PULSE 100; RESP 16; TEMP 98.1; O2SAT 100
== END 2023-10-20 21:18 | disposition left against medical advice (07) ==
LOC: ER 18:05
DX: R10.9 Unspecified abdominal pain (principal); Z53.21 Procedure and treatment not carried out due to patient leaving prior to being seen by health care provider; Z88.0 Allergy status to penicillin; Z88.8 Allergy status to other drugs, medicaments and biological substances; Z91.041 Radiographic dye allergy status
CPT/HCPCS: 74176